=== PATIENT | male | born 1980 | race Hispanic/Latino ===

== ENCOUNTER 2024-01-31 08:40 | Emergency (ER) | payer OTHER ==
[~2024-01-31] VITALS: Ht 190.5 cm; Wt 124.7 kg
[2024-01-31 08:46] VITALS: BP 155/100; PULSE 89; RESP 16; O2SAT 100
[2024-01-31] MEDS: IBUPROFEN 600 MG TABLET PO ONE (10:19)
[2024-01-31] MEDS ORDERED: IBUP-2070 PO (10:20)
[2024-01-31] MEDS ORDERED: CEPH500B PO (10:20)
== END 2024-01-31 10:27 | disposition home or self-care (01) ==
LOC: EDH 08:40
DX: L03.221 Cellulitis of neck (principal); L98.9 Disorder of the skin and subcutaneous tissue, unspecified; Z90.49 Acquired absence of other specified parts of digestive tract